=== PATIENT | female | born 1980 | race Caucasian/White ===

== ENCOUNTER 2022-01-20 16:53 | Emergency (ER) | payer OTHER, SELFPAY ==
--- NOTE | ~2022-01-20 | XR_ITS ---
EXAMINATION: XR KNEE, LEFT CLINICAL INFORMATION: Pain status post fall COMPARISON: None TECHNIQUE: Four views of the left knee. FINDINGS: No acute fracture, dislocation, or knee joint effusion. Joint spaces are maintained. Minimal spurring of the tibial spines. No large osteophytes. No osseous lesion. XR/XR knee LT 4V IMPRESSION: No acute osseous injury or joint effusion.
--- NOTE | ~2022-01-20 | XR_ITS ---
EXAMINATION: XR CLAVICLE, RIGHT CLINICAL INFORMATION: Fall. Pain. COMPARISON: None TECHNIQUE: Two views of the right clavicle. FINDINGS: The clavicle is intact. The bones and soft tissues are normal. No fracture. Acromioclavicular joint alignment is anatomic. XR/XR clavicle RT IMPRESSION: Normal right clavicle.
--- NOTE | ~2022-01-20 | XR_ITS ---
EXAMINATION: XR CHEST CLINICAL INFORMATION: Pain status post fall COMPARISON: None TECHNIQUE: Frontal view of the chest was obtained. FINDINGS: The lungs are clear. No airspace consolidation, pleural effusion, or pneumothorax. The cardiomediastinal silhouette is within normal limits. No acute displaced rib fracture identified within the limitations of this exam. Surgical clips in the right upper quadrant consistent with prior cholecystectomy. Chronic/healed fracture deformity of the right mid clavicle. XR/XR chest 1V IMPRESSION: 1. No acute pulmonary disease. 2. No acute displaced rib fracture identified within the limitations of this exam.
--- NOTE | ~2022-01-20 | XR_ITS ---
EXAMINATION: XR ELBOW, RIGHT CLINICAL INFORMATION: Pain. Fall. COMPARISON: None TECHNIQUE: Four views of the right elbow. FINDINGS: The bones and soft tissues are normal. No fracture or joint effusion. Alignment is anatomic. Joint spaces are maintained. XR/XR elbow RT min 3V IMPRESSION: Normal right elbow.
--- NOTE | ~2022-01-20 | XR_ITS ---
EXAMINATION: XR KNEE, RIGHT CLINICAL INFORMATION: Pain. Fall. COMPARISON: None TECHNIQUE: Four views of the right knee. FINDINGS: No fracture. No dislocation. No joint effusion. Mild joint narrowing of the femoral tibial joint. Marginal bone spurs of femur and tibia at the femoral tibial joint. No bone erosion. No soft tissue calcification XR/XR knee RT 4V IMPRESSION: 1. No acute abnormality. 2. 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
--- NOTE | ~2022-01-20 | XR_ITS ---
EXAMINATION: RIGHT HAND CLINICAL INFORMATION: Fall. Hand pain. COMPARISON: None TECHNIQUE: 3 views FINDINGS: No fracture. No dislocation. Bone and joint are normal. No soft tissue abnormality. XR/XR hand wrist RT IMPRESSION: Normal right hand.
[2022-01-20 16:56] VITALS: BP 120/78; PULSE 65; RESP 18; TEMP 37.2; O2SAT 99; BMI 38.9
--- NOTE | 2022-01-20 17:05 | ECG_ITS ---
Test Reason : FALL Blood Pressure : / mmHG Vent. Rate : 047 BPM Atrial Rate : 047 BPM P-R Int : 166 ms QRS Dur : 088 ms QT Int : 434 ms P-R-T Axes : 043 085 034 degrees QTc Int : 384 ms Sinus bradycardia Otherwise normal ECG No previous ECGs available Referred By: Generic ED Physician Electronically Signed By:ZEINA SHERWOOD MD
--- NOTE | 2022-01-20 19:28 | PC.NURSE ---
Pt told this RN that they are not willing to wait any longer. This RN educated pt on wait times and leaving before being seen by MD. Pt walked out of ER.
== END 2022-01-20 22:30 | disposition left against medical advice (07) ==
PROVIDERS: Emergency Provider Emergency Medicine
DX: S89.92XA Unspecified injury of left lower leg, initial encounter (principal); S89.91XA Unspecified injury of right lower leg, initial encounter; S59.901A Unspecified injury of right elbow, initial encounter; W10.1XXA Fall (on)(from) sidewalk curb, initial encounter; R07.9 Chest pain, unspecified; Y93.01 Activity, walking, marching and hiking; Y92.510 Bank as the place of occurrence of the external cause; Y99.0 Civilian activity done for income or pay
CPT/HCPCS: 71045; 73000; 73080; 73110; 73130; 73564; 93005; 99283